=== PATIENT | female | born 1980 | race Two or more races ===

== ENCOUNTER 2016-12-14 22:51 | Emergency (ER) | payer OTHER ==
[~2016-12-14] VITALS: Ht 154.9 cm; Wt 71.2 kg
--- NOTE | 2016-12-14 22:56 | PHYS DOC ---
Past History Past Surgical History Cosmetic Smoking: Non-smoker Adult General Chief Complaint Chief Complaint: NAUSEA/VOMITING/DIARRHEA HPI HPI Patient is a 36 year old FEMALE who presents with nausea, vomiting and diarrhea. Started today. She has vomited 3 times and had >5 loose stools. No fever. No one else sick at home. Ate a yogurt parfait from [employer] for lunch. No blood in emesis or stool. She has had problems with gastritis before. Review of Systems Review of Systems Constitutional: Denies fever or chills Eyes: Denies change in visual acuity, redness, or eye pain HENT: Denies nasal congestion or sore throat Respiratory: Denies cough or shortness of breath Cardiovascular: No chest pain GI: See HPI : Denies dysuria or hematuria Musculoskeletal: Denies back pain or joint pain Integument: Denies rash or skin lesions Neurologic: Denies headache, focal weakness or sensory changes Physical Exam Physical Exam Constitutional: Well developed, well nourished, no acute distress, non-toxic appearance. HENT: Normocephalic, atraumatic, bilateral external ears normal, oropharynx moist, no oral exudates, nose normal. Eyes: PERRLA, EOMI, conjunctiva normal, no discharge. Neck: Normal range of motion, no tenderness, supple, no stridor. Cardiovascular:Heart rate regular rhythm, no murmur Lungs & Thorax: Bilateral breath sounds clear to auscultation Abdomen: Bowel sounds normal, soft, minimal tenderness, no masses, no pulsatile masses. Skin: Warm, dry, no erythema, no rash. Back: No tenderness, no CVA tenderness. Extremities: No tenderness, no cyanosis, no clubbing, ROM intact, no edema. Neurologic: Alert and oriented X 3, normal motor function, normal sensory function, no focal deficits noted. Psychologic: Affect normal, judgement normal, mood normal. Current Patient Data Vital Signs Vital Sign - Last 24 Hours 12/14/16 22:51 Temp 97.9 Pulse 92 Resp 20 Pulse Ox 100 O2 Delivery Room Air Radiology/Procedures Radiology/Procedures [address] [address] IMAGING REPORT Signed PATIENT: IAM EARLY ACCOUNT: [id number] : 1980 LOCATION: ER AGE: 36 SEX: F EXAM STATUS: REG ER ORD. PHYSICIAN: SOPHIA EUBANKS MD REASON: elev wbc; UCG negative PROCEDURE: CT ABD PELV W/ IV CONTRST ONLY PQRS Compliance Statement: One or more of the following individualized dose reduction techniques were utilized for this examination: 1. Automated exposure control 2. Adjustment of the mA and/or kV according to patient size 3. Use of iterative reconstruction technique CT ABD PELV W/ IV CONTRST ONLY Clinical Indication: N/V/D, ELEVATED WHITE COUNT, Comparison: None. Technique: Helical CT imaging of the abdomen and pelvis is performed after 75 cc Omnipaque 300 370 IV contrast. Oral contrast not given. Findings: Mild bilateral lower lobe dependent atelectasis. Cardiac size normal. Liver, gallbladder, spleen, pancreas, adrenal glands, and abdominal aorta caliber are normal. There are multiple bilateral sub-5 mm nonobstructing renal calculi. There are at least 5 on the right and at least 10 on the left. Small cortical cyst lower pole right kidney. Kidneys enhance symmetrically, no hydronephrosis. Evaluation of bowel may be limited without oral contrast. Stomach unremarkable. No dilated small bowel. Several small bowel loops are borderline thick-walled. No surrounding inflammation. No colon wall thickening. No periappendiceal inflammation. There is air in the lumen of the appendix. No abdominal adenopathy or free fluid. There is a right ovary cyst measuring 2 cm. There is left ovary cyst measuring 4.1 cm. There is a second cystic structure of the left ovary that could be a functional cyst versus hydrosalpinx. Retroverted uterus contains IUD. The urinary bladder is normal. No pelvic free fluid is seen. Prominent intramuscular fat striations of the bilateral gluteus dayan muscles. Doubtful clinical significance. No acute bone abnormality. IMPRESSION: 1. The appendix is normal. 2. There is a 4 cm left ovary functional cyst. There is a second cystic structure of the left ovary that could be a follicle versus hydrosalpinx. No pelvic free fluid. 3. Several small bowel loops are borderline thick-walled. No surrounding inflammation. No bowel obstruction. Cannot exclude nonspecific enteritis. 4. Multiple bilateral nonobstructing renal calculi. Electronically signed by: Mitchell Clemons MD (12/15/2016 12:54 AM) [id number] DICTATED AND SIGNED BY: MITCHELL CLEMONS MD DATE: 12/15/16 0044 CC: SOPHIA EUBANKS MD; PCP,UNKNOWN ~ Course & Med Decision Making Course & Med Decision Making IV NS, IV Zofran. Will check lab. WBC is >17K. UA has LE but little WBC. UCG negative. Will need to check CT. At 0120 AM: CT results with non specific enteritis. No appendicitis. Reviewed findings w patient. Will place on cipro and flagyl. Unable to provide stool sample here. Given return and followup instructions. Patient is hungry now. Dragon Disclaimer Dragon Disclaimer This chart was dictated in whole or in part using Voice Recognition software in a busy, high-work load, and often noisy Emergency Department environment. It may contain unintended and wholly unrecognized errors or omissions. Departure Departure: Impression: Primary Impression: Enteritis Additional Impressions: Nausea and vomiting in adult Diarrhea Disposition: HOME, SELF-CARE Condition: STABLE Patient Instructions: Diarrhea Additional Instructions: IF YOU WORSEN AT ALL PLEASE RETURN FOR RECHECK Scripts Metronidazole (FLAGYL) 500 Mg Tablet 1 TAB PO BID, #10 TAB Prov: SOPHIA EUBANKS MD 12/15/16 Ciprofloxacin Hcl (CIPROFLOXACIN HCL) 500 Mg Tablet 1 TAB PO BID, #10 TAB Prov: SOPHIA EUBANKS MD 12/15/16 Ondansetron (ZOFRAN ODT) 8 Mg Tab.rapdis 8 MG PO PRN Q6-8HRS Y for VOMITING, #10 Prov: SOPHIA EUBANKS MD 12/15/16 Problem Qualifiers Additional Impressions: Diarrhea Diarrhea type: presumed infectious Qualified Codes: A09 - Infectious gastroenteritis and colitis, unspecified SOPHIA EUBANKS MD Dec 14, 2016 22:56
[2016-12-14] MEDS ORDERED: IV NORMAL SALINE 1,000ML 1,000 ML IV ONE (23:15)
[2016-12-14] MEDS ORDERED: ONDANSETRON PF 4 MG/2 ML VIAL. IV ONE (23:15)
[2016-12-14 23:34] VITALS: BP 133/88
[2016-12-14 23:35] LABS: BASO # 0.1 x10^3/uL (0.0-0.2); BASO % 1 % (0-3); EOS # 0.3 x10^3/uL (0.0-0.7); EOS % 2 % (0-3); HEMATOCRIT 45.5 % (36.0-47.0); HEMOGLOBIN 15.1 g/dL (12.0-15.5); LYMPH # 3.4 x10^3/uL (1.0-4.8); LYMPH % 19 % (24-48); MEAN CORPUSCULAR HEMOGLOBIN 27 pg (25-35); MEAN CORPUSCULAR HGB CONC 33 g/dL (31-37); MEAN CORPUSCULAR VOLUME 82 fL (79-100); MONO % 6 % (0-9); NEUT # 12.9 x10^3uL (1.8-7.7); NEUT % 73 % (31-73); PLATELET COUNT 286 x10^3/uL (140-400); RED BLOOD COUNT 5.54 x10^6/uL (3.50-5.40); RED CELL DISTRIBUTION WIDTH 13.6 % (11.5-14.5); WHITE BLOOD COUNT 17.8 x10^3/uL (4.0-11.0)
[2016-12-14 23:49] LABS: BACTERIA,URINE MOD /HPF (0-FEW); BILIRUBIN,URINE NEG (NEG); CLARITY,URINE HAZY; COLOR,URINE YELLOW; GLUCOSE,URINE NEG (NEG); NITRITE,URINE NEG (NEG); SQUAMOUS EPITHELIAL CELL,UR MOD /LPF; UROBILINOGEN,URINE 0.2 mg/dL (0.2 mg/dL)
[2016-12-14 23:50] LABS: ALBUMIN 4.3 g/dL (3.4-5.0); CALCIUM 9.8 mg/dL (8.5-10.1); CREATININE 0.8 mg/dL (0.6-1.0); DIRECT BILIRUBIN 0.1 mg/dL (0.0-0.2); GFR 80.7; POTASSIUM 3.6 mmol/L (3.5-5.1); TOTAL BILIRUBIN 0.6 mg/dL (0.2-1.0); TOTAL PROTEIN 8.8 g/dL (6.4-8.2)
[2016-12-14 23:52] LABS: U PREG PATIENT NEGATIVE (NEG)
[2016-12-15 00:05] LABS: % BANDS 5 % (0-9); % LYMPHS 20 % (24-48); % MONOS 5 % (0-10); % SEGS 70 % (35-66); PLT ESTIMATE ADEQUATE (ADEQUATE)
[2016-12-15] MEDS ORDERED: CONTRAST GIVEN MC PRN (00:15)
[2016-12-15] MEDS ORDERED: IOHEXOL 300 MG/ML 75 ML VIAL. IV ONE (00:30)
--- NOTE | 2016-12-15 00:57 | RAD ---
PQRS Compliance Statement: One or more of the following individualized dose reduction techniques were utilized for this examination: 1. Automated exposure control 2. Adjustment of the mA and/or kV according to patient size 3. Use of iterative reconstruction technique CT ABD PELV W/ IV CONTRST ONLY Clinical Indication: N/V/D, ELEVATED WHITE COUNT, Comparison: None. Technique: Helical CT imaging of the abdomen and pelvis is performed after 75 cc Omnipaque 300 370 IV contrast. Oral contrast not given. Findings: Mild bilateral lower lobe dependent atelectasis. Cardiac size normal. Liver, gallbladder, spleen, pancreas, adrenal glands, and abdominal aorta caliber are normal. There are multiple bilateral sub-5 mm nonobstructing renal calculi. There are at least 5 on the right and at least 10 on the left. Small cortical cyst lower pole right kidney. Kidneys enhance symmetrically, no hydronephrosis. Evaluation of bowel may be limited without oral contrast. Stomach unremarkable. No dilated small bowel. Several small bowel loops are borderline thick-walled. No surrounding inflammation. No colon wall thickening. No periappendiceal inflammation. There is air in the lumen of the appendix. No abdominal adenopathy or free fluid. There is a right ovary cyst measuring 2 cm. There is left ovary cyst measuring 4.1 cm. There is a second cystic structure of the left ovary that could be a functional cyst versus hydrosalpinx. Retroverted uterus contains IUD. The urinary bladder is normal. No pelvic free fluid is seen. Prominent intramuscular fat striations of the bilateral gluteus dayan muscles. Doubtful clinical significance. No acute bone abnormality. IMPRESSION: 1. The appendix is normal. 2. There is a 4 cm left ovary functional cyst. There is a second cystic structure of the left ovary that could be a follicle versus hydrosalpinx. No pelvic free fluid. 3. Several small bowel loops are borderline thick-walled. No surrounding inflammation. No bowel obstruction. Cannot exclude nonspecific enteritis. 4. Multiple bilateral nonobstructing renal calculi. Electronically signed by: Mitchell Clemons MD (12/15/2016 12:54 AM) [id number]
[2016-12-15] MEDS ORDERED: CIPR500T PO (01:26)
[2016-12-15] MEDS ORDERED: METR500T PO (01:26)
[2016-12-15] MEDS ORDERED: ONDA8TAB12 PO (01:26)
[2016-12-15] MEDS ORDERED: CIPROFLOXACIN HCL 500 MG TABLET PO ONE (02:00)
[2016-12-15] MEDS ORDERED: metroNIDAZOLE 500 MG TABLET PO ONE (02:00)
== END 2016-12-15 01:41 | disposition home or self-care (01) ==
LOC: ER 22:51
DX: K52.9 Noninfective gastroenteritis and colitis, unspecified (principal)
CPT/HCPCS: 36415; 74177; 80048; 80076; 81001; 81025; 83690; 85007; 85025; 87086; 96361; 96374; 99285; J2405; Q9967; J7030

== ENCOUNTER 2016-12-17 09:52 | Emergency (ER) | payer OTHER ==
[~2016-12-17] VITALS: Ht 154.9 cm; Wt 71.2 kg
[~2016-12-17 09:52] MED LIST: CIPR500T PO; METR500T PO; ONDA8TAB12 PO
[2016-12-17 09:55] VITALS: BP 133/88
--- NOTE | 2016-12-17 10:12 | PHYS DOC ---
Past History Past Medical History: Other Past Surgical History: No Surgical History Smoking: Non-smoker Alcohol Use: None Drug Use: None Adult General Chief Complaint Chief Complaint: SKIN RASH/ABSCESS HPI HPI Patient is a 36-year-old female complaining of itchy rash on her skin and itching of the eyes and eyelids. The patient was seen here on Monday night with the diagnosis of enteritis. She had some vomiting and diarrhea, a CT scan showed some mild bowel wall thickening. She was given a first dose of antibiotics here in the ED and a prescription for Cipro and metronidazole. She actually did not fill her prescription on , filled it on Monday, and took her first and only dose of Cipro and metronidazole about noon Monday ( yesterday). Today, she is having some swelling of her left eyelid and swelling and itching of both eyes. Her throat feels scratchy and she feels like she is having trouble swallowing. She has had some rash on her extremities and trunk that has come and gone. That rash does not sound otherwise urticarial. It is very small red bumps, not larger urticarial welt type bumps. She has had no wheezing or shortness of air. When talking to the patient, she thinks she might have had some itching of her left hand before she even got any antibiotics, but the timeline is not exactly clear. She has never had drug allergies in the past. The patient's vomiting and diarrhea actually went away prior to her starting the antibiotics yesterday at noon. Review of Systems Review of Systems Constitutional: Denies fever or chills [] Eyes: As in history of present illness HENT: As in history of present illness Respiratory: As in history of present illness GI: As in history of present illness : Denies Allergies Allergies Allergies Coded Allergies Type Severity Reaction Last Updated Verified No Known Drug Allergies 12/14/16 No Physical Exam Physical Exam Constitutional: Well developed, well nourished, no acute distress, non-toxic appearance. Alert, ambulatory, no acute distress, warm and dry. HENT: Normocephalic, atraumatic, bilateral external ears normal, oropharynx moist, no oral exudates, nose normal. [] Eyes: Bilaterally, conjunctival normal, no conjunctival discharge. The left upper and lower eyelids are very mildly swollen, not red, just mildly puffy, no evidence of stye. Neck: Normal range of motion, no tenderness, supple, no stridor. [] Cardiovascular:Heart rate regular rhythm, no murmur [] Lungs & Thorax: Bilateral breath sounds clear to auscultation, no wheezing Skin: Warm, dry, no erythema, no rash. There is no urticarial or other lesion present on the skin at this time. There is an area of excoriation in the middle of the back but no other areas of abnormality. Extremities: No tenderness, no cyanosis, no clubbing, ROM intact, no edema. [] Neurologic: Alert and oriented X 3, normal motor function, normal sensory function, no focal deficits noted. [] EKG EKG [] Radiology/Procedures Radiology/Procedures [] Course & Med Decision Making Course & Med Decision Making Pertinent Labs and Imaging studies reviewed. (See chart for details) 36-year-old female presents with concern for itchy rash and itching with mild swelling of the eyelids that she believes began after taking Cipro and metronidazole which were prescribed a few nights ago in the ED for the diagnosis of enteritis. At this time, I am not seeing any lesions of her rash. I do see a very mild left eyelid swelling. While the history of the lesions coming and going is concerning, lesions do not sound like urticaria. The timeline is not convincing to me. However, the patient is concerned and I do believe she could safely stop her antibiotics since her enteritis symptoms resolved essentially before she took the antibiotics and she feels fine today. Talked about the use of an antihistamine but the patient has a birthday green party to attend this afternoon and she doesn't want any Benadryl at this time. She can use a topical antihistamine and save the oral Benadryl until she gets home. See instructions for plan. [] Dragon Disclaimer Dragon Disclaimer This chart was dictated in whole or in part using Voice Recognition software in a busy, high-work load, and often noisy Emergency Department environment. It may contain unintended and wholly unrecognized errors or omissions. Departure Departure: Impression: Primary Impression: Rash and nonspecific skin eruption Disposition: HOME, SELF-CARE Condition: STABLE Referrals: PCP,UNKNOWN (PCP) Additional Instructions: As we discussed, there is no way to tell whether your symptoms are caused by the antibiotics you were recently prescribed. Since your vomiting and diarrhea got better by itself before you really even started the antibiotics, I think you should stop the antibiotics. Continue to drink plenty of fluids and stay well-hydrated. For the symptom of itchy, swollen eyes, purchase [id number] Opthcon-A eyedrops, which is an antihistamine eyedrop. Also use Benadryl [id number] one every 6 hours as needed for itching and rash symptoms. This may make you sedated, you may want to take only at bedtime. If Benadryl is too sedating, you may take a nonsedating antihistamine during the day such as Claritin. If your rash and itching symptoms continue after 3-4 days, see your doctor. If worse, or trouble breathing, return sooner. KAYLA ALEX MD Dec 17, 2016 10:12
== END 2016-12-17 11:10 | disposition home or self-care (01) ==
LOC: ER 09:52
DX: R21 Rash and other nonspecific skin eruption (principal); L29.9 Pruritus, unspecified; H53.8 Other visual disturbances
CPT/HCPCS: 99281